=== PATIENT | male | born 1965 | race Caucasian/White ===

== ENCOUNTER 2018-09-11 15:36 | Emergency (ER) | payer OTHER ==
[~2018-09-11] VITALS: Ht 175.3 cm; Wt 90.7 kg
[~2018-09-11 15:36] MED LIST: ALLEGRA30 MG; ASPIRIN EC81 M1; FLOMAX PO; NOHOMEMEDICATIONS; NORCO 5-325 TA1 EACH PO
[2018-09-11] MEDS ORDERED: ATORVASTATIN CA40 MG PO (15:53)
[2018-09-11] MEDS ORDERED: NORVASC5 MG PO (15:54)
[2018-09-11] MEDS ORDERED: LOSARTAN-HCTZ1 EAC3 PO (15:54)
[2018-09-11] MEDS ORDERED: SERTRALINE HCL50 MG PO (15:54)
[2018-09-11 16:31] LABS: ABSOLUTE BASOPHILS 0.1 thou/uL (0.0-0.2); ABSOLUTE EOSINOPHILS 0.2 thou/uL (0.0-0.7); ABSOLUTE LYMPHOCYTES 2.1 thou/uL (0.8-5.3); ABSOLUTE MONOCYTES 0.7 thou/uL (0.0-1.2); ABSOLUTE NEUTROPHILS 4.3 thou/uL (1.6-8.1); BASOPHILS 0.7 %; EOSINOPHILS 3.3 %; HEMATOCRIT 43.7 % (42.0-52.0); HEMOGLOBIN 14.8 gm/dL (14.0-18.0); LYMPHOCYTES 28.1 %; MCH 29.8 pg (26.0-34.0); MCHC 33.9 g/dL (28.0-37.0); MCV 87.8 fL (80.0-100.0); MONOCYTES 10.1 %; MPV 8.9 fl. (7.2-11.1); NUCLEATED RBCS 0 /100WBC; PLATELET COUNT* 246 thou/uL (150-400); POLYS 57.8 %; RBC 4.98 mil/uL (4.50-6.00); RDW-CV 13.9 % (10.5-14.5); WBC 7.4 thou/uL (4.0-11.0)
[2018-09-11 16:41] LABS: ANION GAP 7 mmol/L (7-16); BUN 20 mg/dL (7-18); CALCIUM 8.7 mg/dL (8.5-10.1); CHLORIDE 101 mmol/L (98-107); CO2 31 mmol/L (21-32); CREATININE 0.9 mg/dL (0.6-1.3); GLUCOSE 105 mg/dL (70-99); POTASSIUM 3.5 mmol/L (3.5-5.1); SODIUM 139 mmol/L (136-145)
[2018-09-11 16:53] LABS: ALBUMIN 4.2 g/dL (3.4-5.0); ALKALINE PHOSPHATASE 114 U/L (46-116); SGOT 28 U/L (15-37); SGPT 39 U/L (30-65); TOTAL BILIRUBIN 0.3 mg/dL (<0.1-1.0); TOTAL PROTEIN 7.9 g/dL (6.4-8.2); TROPONIN-I LEVEL <0.06 ng/mL (<0.06)
[2018-09-11] MEDS ORDERED: NABUMETONE 750750 M1 PO (18:10)
[2018-09-11] MEDS ORDERED: ZANAFLEX4 MG PO (18:10)
[2018-09-11 19:25] VITALS: BP 136/73
--- NOTE | 2018-09-12 15:28 | EKG ---
[place] [address] ELECTROCARDIOGRAM REPORT Name: DANE CHARLES Room: [facility]#: [id number] Admission: 09/11/18 Attend Phys: Discharge: 09/11/18 Date of : 69 Report #: [id number] THIS REPORT FOR: //name// [facility] ED Test Date: 2018-09-11 Test Time: 15:42:49 Pat Name: DANE CHARLES Department: Room: Gender: M Manager Environmental Affairs: : 1965 Requested By: Briseyda Pappas Order Number: [id number] MD: Elvis Sánchez Measurements Intervals [place] Rate: 72 P: 10 DC: 155 QRS: -3 QRSD: 106 T: 18 QT: 381 QTc: 417 Interpretive Statements Sinus rhythm RSR' in V1 or V2, right VCD No previous ECG available for comparison Electronically Signed On 09-12-2018 15:28:03 [employer] WORK[employer] by Elvis Sánchez [email or web address] <ELECTRONICALLY SIGNED> By: Elvis Sánchez MD, [facility] 09/12/18 1528 [id number] 154 Elvis Sánchez MD, FACC /EPI
== END 2018-09-11 19:27 | disposition home or self-care (01) ==
LOC: M.ERS 15:36
PROVIDERS: Nurse Practitioner Family
DX: S16.1XXA Strain of muscle, fascia and tendon at neck level, initial encounter (principal); S46.812A Strain of other muscles, fascia and tendons at shoulder and upper arm level, left arm, initial encounter; I10 Essential (primary) hypertension; Z87.442 Personal history of urinary calculi; Z88.1 Allergy status to other antibiotic agents; V89.2XXA Person injured in unspecified motor-vehicle accident, traffic, initial encounter; Y93.89 Activity, other specified; Y92.89 Other specified places as the place of occurrence of the external cause; Y99.8 Other external cause status